=== PATIENT | female | born 1995 | race Caucasian/White ===

== ENCOUNTER 2023-11-05 11:46 | Inpatient (IN) ==
[2023-11-05] MEDS: Prochlorperazine 5 mg/ml 2 ml VIAL (10 mg) IV ONE (13:46)
[2023-11-05 14:11] LABS: ABS Basophils 0.1 10^3/uL (0.0-0.1); ABS Eosinophils 0.1 10^3/uL (0.0-0.5); ABS Lymphocytes 2.2 10^3/uL (1.0-4.8); ABS Monocytes 0.6 10^3/uL (0.0-0.9); ABS Neutrophils 6.7 10^3/uL (1.5-7.6); ABS Nucleated RBC 0.01 10^3/ul; Eosinophil % 1.1 %; Hematocrit 34.2 % (35-45); Hemoglobin 10.3 g/dL (11.5-14.3); Lymphocyte % 22.3 %; Mean Corpuscular Hemoglobin 20.6 pg (27-33); Mean Corpuscular Hgb Conc 30.2 g/dL (31-36); Mean Corpuscular Volume 68.3 fL (80-97); Mean Platelet Volume 7.6 fL (7.5-11.2); Nucleated Red Blood Cells % 0.1 %/100WBC (0.0-0.8); Platelet Count 401 10^3/uL (150-450); Red Blood Count 5.01 10^6/uL (3.63-4.92); Red Cell Distribution Width 22.7 % (12-17); White Blood Count 9.7 10^3/uL (3.8-11.8)
[2023-11-05 14:42] LABS: ALT 16 U/L (7-52); AST 16 U/L (13-39); Albumin 3.9 g/dL (3.2-5.2); Albumin/Globulin Ratio 1.4 (1-3); Alkaline Phosphatase 68 U/L (35-149); Anion Gap 7 mmol/L (2-16); Blood Urea Nitrogen 8 mg/dL (6-24); CO2 Carbon Dioxide 22 mmol/L (22-32); Calcium 8.9 mg/dL (8.6-10.3); Chloride 110 mmol/L (101-111); Creatinine, Serum 0.65 mg/dL (0.51-0.95); Globulin 2.7 g/dL (2-4); Glucose 80 mg/dL (70-100); HCG Pregnancy < 0.60 mIU/mL; Potassium 3.5 mmol/L (3.5-5.0); Sodium 139 mmol/L (135-145); Total Bilirubin 0.2 mg/dL (0.2-1.0); Total Protein 6.6 g/dL (6.4-8.9); eGFR CKD-EPI 123.7 (>60)
[2023-11-05] MEDS ORDERED: Polyethylene Glycol 3350 17 GM PACKET PO PRN (15:24)
[2023-11-05] MEDS ORDERED: Senna TAB 8.6 mg TAB PO PRN (15:24)
[2023-11-05] MEDS ORDERED: Dextrose 50% Syringe 50 ml 25 GM/50 ML SYRINGE IV PUSH PRN (17:48)
[2023-11-05] MEDS: Furosemide 40 mg/4 ml IV VIAL IV SLOW PU SCH (18:38)
[2023-11-05] MEDS: Ondansetron ODT 4 mg TAB 4 MG TAB PO PRN (21:19)
[2023-11-05] MEDS ORDERED: Heparin 5000 UNITS/ML 1 mL VIAL SUBCUT SCH (22:00)
[2023-11-05] MEDS: Ondansetron 4 mg VIAL 2 MG/ML 2 ml VIAL IV ONE (23:28)
[2023-11-06 06:17] LABS: ABS Basophils 0.1 10^3/uL (0.0-0.1); ABS Eosinophils 0.1 10^3/uL (0.0-0.5); ABS Lymphocytes 3.8 10^3/uL (1.0-4.8); ABS Monocytes 0.4 10^3/uL (0.0-0.9); ABS Neutrophils 4.7 10^3/uL (1.5-7.6); Eosinophil % 1.1 %; Hematocrit 35.8 % (35-45); Hemoglobin 10.7 g/dL (11.5-14.3); Lymphocyte % 41.5 %; Mean Corpuscular Hemoglobin 20.6 pg (27-33); Mean Corpuscular Hgb Conc 29.9 g/dL (31-36); Mean Corpuscular Volume 68.8 fL (80-97); Mean Platelet Volume 7.2 fL (7.5-11.2); Platelet Count 435 10^3/uL (150-450); Red Blood Count 5.21 10^6/uL (3.63-4.92); Red Cell Distribution Width 22.5 % (12-17); White Blood Count 9.2 10^3/uL (3.8-11.8)
[2023-11-06 07:05] LABS: Calcium 8.8 mg/dL (8.6-10.3); Creatinine, Serum 0.73 mg/dL (0.51-0.95); Magnesium 2.1 mg/dL (1.9-2.7); Potassium 3.5 mmol/L (3.5-5.0); eGFR CKD-EPI 115.5 (>60)
[2023-11-06] MEDS: Morphine 2 MG/ML SYRINGE IV ONE (09:07)
[2023-11-06] MEDS: Ondansetron 4 mg VIAL 2 MG/ML 2 ml VIAL IV PRN (10:36)
[2023-11-06] MEDS: Morphine 2 MG/ML SYRINGE IV PRN ×2 (15:48→18:20)
[2023-11-06] MEDS ORDERED: Morphine 2 MG/ML SYRINGE IV PRN (15:52)
[2023-11-07 06:49] LABS: INR 1.05 (0.83-1.13)
[2023-11-07 07:10] LABS: ABS Basophils 0.1 10^3/uL (0.0-0.1); ABS Eosinophils 0.1 10^3/uL (0.0-0.5); ABS Lymphocytes 2.4 10^3/uL (1.0-4.8); ABS Monocytes 0.4 10^3/uL (0.0-0.9); ABS Neutrophils 3.7 10^3/uL (1.5-7.6); ABS Nucleated RBC 0.01 10^3/ul; Eosinophil % 1.3 %; Hematocrit 32.3 % (35-45); Hemoglobin 9.9 g/dL (11.5-14.3); Lymphocyte % 36.4 %; Mean Corpuscular Hemoglobin 21.2 pg (27-33); Mean Corpuscular Hgb Conc 30.7 g/dL (31-36); Mean Platelet Volume 7.2 fL (7.5-11.2); Nucleated Red Blood Cells % 0.1 %/100WBC (0.0-0.8); Platelet Count 349 10^3/uL (150-450); Red Blood Count 4.68 10^6/uL (3.63-4.92); Red Cell Distribution Width 22.2 % (12-17); White Blood Count 6.7 10^3/uL (3.8-11.8)
[2023-11-07 08:04] LABS: Anion Gap 9 mmol/L (2-16); Blood Urea Nitrogen 8 mg/dL (6-24); CO2 Carbon Dioxide 24 mmol/L (22-32); Calcium 8.4 mg/dL (8.6-10.3); Chloride 106 mmol/L (101-111); Creatinine, Serum 0.79 mg/dL (0.51-0.95); Glucose 95 mg/dL (70-100); Potassium 3.2 mmol/L (3.5-5.0); Sodium 139 mmol/L (135-145); eGFR CKD-EPI 105.1 (>60)
[2023-11-07] MEDS: NF: RIMEGEPANT SULFATE 75 MG ODT TAB (NF) PO SCH (09:08)
[2023-11-07] MEDS: Potassium EFFERVES 25 meq TAB PO ONE (09:11)
[2023-11-07] MEDS: COVID VAC 23-24(12+)(Moderna) SYR 0.5 ML IM ONE (09:13)
[2023-11-07] MEDS: Polyethylene Glycol 3350 17 GM PACKET PO SCH (09:19)
[2023-11-07] MEDS ORDERED: Magnesium Hydroxide LIQ 30 ML UDC PO PRN (09:56)
[2023-11-07] MEDS: Morphine 2 MG/ML SYRINGE IV SCH (10:45)
[2023-11-07 10:49] LABS: % Iron Saturation 5 % (15-55); .Transferrin 285 mg/dL (203-362); Iron < 20 ug/dL (50-212); Phosphorus 3.6 mg/dL (2.5-5.0); Total Iron Binding Capacity 399 mcg/dL (250-450); Unsaturated Iron Binding 379 ug/dL
[2023-11-07 11:08] LABS: Ferritin 3.8 ng/mL (11-307)
[2023-11-07] MEDS ORDERED: Lorazepam PYXIS KEY PRN (13:48)
[2023-11-07] MEDS: LORazepam 2 mg VIAL 1 ml IV PUSH ONE (13:52)
[2023-11-07 16:16] LABS: Body Fluid Source Cerebral Spinal
[2023-11-07 16:36] LABS: CSF Glucose 75 mg/dL (40-70)
[2023-11-07 16:40] LABS: CSF Body Fluid WBC 2 /mcL
[2023-11-07 16:41] LABS: Body Fluid Appearance Clear; Body Fluid Color Colorless; CSF Tube # 1
[2023-11-07 17:08] LABS: Body Fluid Total Cells Counted 1
[2023-11-07] MEDS: Magnesium Hydroxide LIQ 30 ML UDC PO SCH (20:39)
[2023-11-07] MEDS: Senna TAB 8.6 mg TAB PO SCH (20:40)
[2023-11-08] MEDS: fentaNYL 250 mcg/5 ml 50 MCG/ML 5 ml VIAL (250 MCG) ONE (01:59)
[2023-11-08] MEDS: Morphine 2 MG/ML SYRINGE IV PRN (02:27)
[2023-11-08 07:31] LABS: Calcium 8.4 mg/dL (8.6-10.3); Potassium 3.5 mmol/L (3.5-5.0)
[2023-11-08 07:42] LABS: ABS Basophils 0.1 10^3/uL (0.0-0.1); ABS Eosinophils 0.1 10^3/uL (0.0-0.5); ABS Monocytes 0.5 10^3/uL (0.0-0.9); ABS Neutrophils 5.5 10^3/uL (1.5-7.6); ABS Nucleated RBC 0.01 10^3/ul; Eosinophil % 1.1 %; Hematocrit 32.7 % (35-45); Hemoglobin 9.8 g/dL (11.5-14.3); Lymphocyte % 13.8 %; Mean Corpuscular Hemoglobin 20.9 pg (27-33); Mean Corpuscular Volume 69.6 fL (80-97); Mean Platelet Volume 7.4 fL (7.5-11.2); Nucleated Red Blood Cells % 0.1 %/100WBC (0.0-0.8); Platelet Count 381 10^3/uL (150-450); Red Cell Distribution Width 22.6 % (12-17); White Blood Count 7.2 10^3/uL (3.8-11.8)
[2023-11-08 08:09] LABS: Creatinine, Serum 0.67 mg/dL (0.51-0.95); eGFR CKD-EPI 122.8 (>60)
[2023-11-08] MEDS ORDERED: Lorazepam PYXIS KEY PRN ×3 (11:42→14:47)
[2023-11-08] MEDS ORDERED: LORazepam 2 mg VIAL 1 ml IV PUSH PRN (11:54)
[2023-11-08] MEDS: LORazepam 2 mg VIAL 1 ml IV PUSH ONE ×2 (16:22→20:30)
[2023-11-09] MEDS ORDERED: Lorazepam PYXIS KEY PRN ×3 (12:16→15:48)
[2023-11-09] MEDS: LORazepam 2 mg VIAL 1 ml IV PUSH ONE ×2 (14:36→15:59)
[2023-11-09] MEDS ORDERED: LORazepam 2 mg VIAL 1 ml IV PUSH ONE (16:00)
[2023-11-10 09:21] VITALS: BP 139/99
== END 2023-11-10 12:25 | disposition home or self-care (01) | DRG 103 ==
LOC: ED 11:46 → EDHOLD 11:46 → MEDTELE 11-06 12:50
PROVIDERS: ADMIT Internal Medicine; ATTEND Internal Medicine

== ENCOUNTER 2023-11-14 18:32 | Observation (INO) ==
[2023-11-14] MEDS: Ondansetron ODT 4 mg TAB 4 MG TAB SL ONE (19:30)
[2023-11-14 21:11] LABS: ABS Basophils 0.2 10^3/uL (0.0-0.1); ABS Eosinophils 0.1 10^3/uL (0.0-0.5); ABS Lymphocytes 2.7 10^3/uL (1.0-4.8); ABS Monocytes 0.7 10^3/uL (0.0-0.9); ABS Neutrophils 7.2 10^3/uL (1.5-7.6); ABS Nucleated RBC 0.01 10^3/ul; Eosinophil % 0.7 %; Hematocrit 34.8 % (35-45); Hemoglobin 10.7 g/dL (11.5-14.3); Lymphocyte % 24.8 %; Mean Corpuscular Hemoglobin 21.5 pg (27-33); Mean Corpuscular Hgb Conc 30.9 g/dL (31-36); Mean Corpuscular Volume 69.8 fL (80-97); Mean Platelet Volume 7.3 fL (7.5-11.2); Platelet Count 398 10^3/uL (150-450); Red Blood Count 4.99 10^6/uL (3.63-4.92); Red Cell Distribution Width 22.6 % (12-17); White Blood Count 10.8 10^3/uL (3.8-11.8)
[2023-11-14 21:31] LABS: Albumin 4.1 g/dL (3.2-5.2); Albumin/Globulin Ratio 1.2 (1-3); Calcium 9.1 mg/dL (8.6-10.3); Creatinine, Serum 0.67 mg/dL (0.51-0.95); Globulin 3.3 g/dL (2-4); Potassium 3.8 mmol/L (3.5-5.0); Total Bilirubin 0.4 mg/dL (0.2-1.0); Total Protein 7.4 g/dL (6.4-8.9); eGFR CKD-EPI 122.8 (>60)
[2023-11-14] MEDS: Acetaminophen IV 1 GM/100ML 1,000 MG/100 ML BAG IV PRN (21:53)
[2023-11-14 22:16] LABS: Erythrocyte Sed Rate 10 mm/Hr (0-19)
[2023-11-15 07:30] LABS: ABS Basophils 0.1 10^3/uL (0.0-0.1); ABS Eosinophils 0.1 10^3/uL (0.0-0.5); ABS Lymphocytes 2.8 10^3/uL (1.0-4.8); ABS Monocytes 0.5 10^3/uL (0.0-0.9); ABS Neutrophils 6.8 10^3/uL (1.5-7.6); ABS Nucleated RBC 0.01 10^3/ul; Eosinophil % 1.2 %; Hemoglobin 10.2 g/dL (11.5-14.3); Lymphocyte % 27.2 %; Mean Corpuscular Hemoglobin 21.7 pg (27-33); Mean Corpuscular Volume 69.8 fL (80-97); Mean Platelet Volume 8.5 fL (7.5-11.2); Nucleated Red Blood Cells % 0.1 %/100WBC (0.0-0.8); Platelet Count 396 10^3/uL (150-450); Red Blood Count 4.73 10^6/uL (3.63-4.92); Red Cell Distribution Width 22.5 % (12-17); White Blood Count 10.3 10^3/uL (3.8-11.8)
[2023-11-15 07:31] LABS: Calcium 8.7 mg/dL (8.6-10.3); Creatinine, Serum 0.63 mg/dL (0.51-0.95); Magnesium 2.1 mg/dL (1.9-2.7); Phosphorus 3.3 mg/dL (2.5-5.0); Potassium 3.2 mmol/L (3.5-5.0); eGFR CKD-EPI 124.6 (>60)
[2023-11-15] MEDS ORDERED: diazePAM INJ CARPUJECT 5 MG/ML SYRINGE IV ONE (09:30)
[2023-11-15] MEDS ORDERED: Enoxaparin 100 MG/ML SYR SUBCUT SCH (10:00)
[2023-11-15] MEDS: Enoxaparin 100 MG/ML SYR SUBCUT SCH (10:21)
[2023-11-15] MEDS: Iron Sucrose 200 MG in NS 0.9% 100 ml BAG 100 ML IVPB SCH (10:31)
[2023-11-15] MEDS: Ferric Gluconate IV 125 MG in NS 0.9% 100 ml BAG 100 ML IVPB SCH (12:02)
[2023-11-15] MEDS ORDERED: Dextrose 50% Syringe 50 ml 25 GM/50 ML SYRINGE IV PUSH PRN (13:30)
[2023-11-15] MEDS: Morphine 2 MG/ML SYRINGE IV PRN (14:33)
[2023-11-15] MEDS: Ondansetron 4 mg VIAL 2 MG/ML 2 ml VIAL IV PRN (14:35)
[2023-11-15] MEDS: diazePAM INJ CARPUJECT 5 MG/ML SYRINGE IV ONE (16:06)
[2023-11-16] MEDS: Cyanocobalamin INJ 1,000 MCG/ML VIAL 1 ML VIAL IM SCH (01:34)
[2023-11-16 07:15] LABS: Hematocrit 30.9 % (35-45); Hemoglobin 9.6 g/dL (11.5-14.3); Mean Corpuscular Hemoglobin 21.7 pg (27-33); Mean Corpuscular Hgb Conc 31.2 g/dL (31-36); Mean Corpuscular Volume 69.6 fL (80-97); Mean Platelet Volume 7.5 fL (7.5-11.2); Platelet Count 377 10^3/uL (150-450); Red Blood Count 4.44 10^6/uL (3.63-4.92); Red Cell Distribution Width 22.5 % (12-17); White Blood Count 8.2 10^3/uL (3.8-11.8)
[2023-11-16 07:40] LABS: Calcium 8.7 mg/dL (8.6-10.3); Creatinine, Serum 0.71 mg/dL (0.51-0.95); eGFR CKD-EPI 119.4 (>60)
[2023-11-16 09:36] VITALS: BP 138/90
[2023-11-16] MEDS: Potassium Chlor 20 meq TAB.ER PO ONE (10:19)
[2023-11-16] MEDS: RIMEGEPANT SULFATE 75 MG ODT TAB (NF) PO SCH (10:26)
== END 2023-11-16 15:09 | disposition home or self-care (01) ==
LOC: EDHOLD 18:32 → ED 18:32 → SUATTDRO 21:29 → MEDTELE 23:22
PROVIDERS: ADMIT Internal Medicine; ATTEND Student in an Organized Health Care Education/Training Program